=== PATIENT | male | born 1960 | race Caucasian/White ===

== ENCOUNTER 2016-12-19 14:59 | Outpatient (CLI) ==
--- NOTE | 2016-12-19 15:45 | DI ---
EXAM: Radiographs, right rib HISTORY: Right-sided chest pain. COMPARISON: Chest radiograph 05/16/2016. TECHNIQUE: Five views. FINDINGS/IMPRESSION: No right rib fracture identified. Right lung is clear without pleural effusion or pneumothorax.
== END 2016-12-19 15:00 | disposition home or self-care (01) ==
LOC: RAD 14:59
PROVIDERS: ATTEND Nurse Practitioner Family
DX: R07.81 Pleurodynia (principal)

== ENCOUNTER 2017-07-16 16:50 | Outpatient (CLI) ==
--- NOTE | 2017-07-17 07:59 | CT ---
EXAM: CT Abdomen without contrast. CT Pelvis without contrast. HISTORY: Mid abdominal pain, burning. COMPARISON: None available. TECHNIQUE: Multiple axial images of the abdomen and pelvis were obtained without intravenous contras t. Images were reformatted in the coronal plane. FINDINGS: Please note that evaluation of the abdominal and pelvic structures is limited due to lack of intravenous contrast. Subsegmental atelectasis noted in the lung bases. Degenerative changes present in the spine. The liver, gallbladder, pancreas, spleen, adrenal glands, and kidneys demonstrate normal contour. Po ssible low density posterior left renal cortical lesion on axial image 39 measuring 1.3 cm. No calci fied renal stones or hydronephrosis detected. The bowel is normal in course and caliber without evidence for obstruction or inflammatory process. The appendix is normal. Pericolonic diverticulosis noted. Small fat-containing umbilical hernia not ed. Multiple mesenteric lymph nodes are present, greatest in the upper to mid abdomen with the large st measuring 1.4 cm short axis on axial image 45. No free fluid or free air identified. Urinary larry dder is unremarkable per prostatic calcifications noted. Atherosclerotic calcifications are seen. IMPRESSION: 1. Nonspecific mesenteric lymphadenopathy which could be reactive due to infectious/inflammatory pro cess. Follow-up CT in 3 months recommended as lymphoproliferative process not excluded. 2. Possible left renal cyst. Correlation with ultrasound recommended. 3. Diverticulosis. 4. Small fat-containing umbilical hernia. 5. Atherosclerosis.
== END 2017-07-16 16:51 | disposition home or self-care (01) ==
LOC: RAD 16:50
PROVIDERS: ATTEND Emergency Medicine
DX: R10.84 Generalized abdominal pain (principal)

== ENCOUNTER 2017-07-30 18:25 | Outpatient (CLI) | END 2017-07-30 18:26 | disposition home or self-care (01) | LOC: LAB 18:25 | PROVIDERS: ATTEND Emergency Medicine | DX: K52.9 Noninfective gastroenteritis and colitis, unspecified (principal) | CPT/HCPCS: 87015; 87045; 87899 ==

== ENCOUNTER 2017-11-12 13:40 | Outpatient (CLI) ==
--- NOTE | 2017-11-12 14:55 | CT ---
EXAM: CT of the cervical spine without contrast History: Cervicalgia. Technique: Multiplanar CT images through the cervical spine were obtained without the administration of IV contrast Findings: The visualized upper lungs are free of consolidation. No acute fracture or subluxation of the cervical spine. No prevertebral soft tissue swelling. Prede ntal space is not widened. No prevertebral soft tissue swelling. Mild to moderate multilevel degene rative disc space narrowing with endplate sclerosis and a few prominent anterior osteophytes. C2-3: No significant disc bulge, central canal stenosis or bony neural foraminal narrowing. C3-4: Small disc bulge effacing the anterior thecal sac with mild to moderate central canal stenosis . Severe bilateral bony neural foraminal narrowing secondary to uncovertebral and facet hypertrophy. C4-5: Small disc bulge effacing the anterior thecal sac with mild central canal stenosis. Severe ri ght and moderate to severe left bony neural foraminal narrowing secondary to uncovertebral and facet hypertrophy. C5-6: Small disc bulge effacing the anterior thecal sac with mild central canal stenosis. Severe le ft and moderate to severe right bony neural foraminal narrowing secondary to uncovertebral and facet hypertrophy. C6-7: No significant disc bulge or bony central canal stenosis. Mild to moderate bilateral bony corby ral foraminal narrowing secondary to uncovertebral and facet hypertrophy. Impression: 1. No acute osseous abnormality of the cervical spine. 2. Mild to moderate degenerative disc disease. 3. Level by level analysis as detailed above.
== END 2017-11-12 13:41 | disposition home or self-care (01) ==
LOC: RAD 13:40
PROVIDERS: ATTEND Nurse Practitioner Family
DX: M54.2 Cervicalgia (principal); S13.4XXA Sprain of ligaments of cervical spine, initial encounter

== ENCOUNTER 2019-01-19 23:11 | Emergency (ER) ==
[2019-01-19 23:23] VITALS: BP 159/97; TEMP 98.1; BMI 28.1
[2019-01-19] MEDS ORDERED: SODIUM CHLORIDE 1,000 ML IV STA (23:41)
[2019-01-19] MEDS ORDERED: ZOFRAN 4 MG/2 ML IVP STA (23:41)
[2019-01-19] MEDS ORDERED: PEPCID IVP STA (23:41)
[2019-01-20] MEDS ORDERED: MORPHINE 2 MG/ML SYRINGE IVP STA (00:44)
--- NOTE | 2019-01-20 01:10 | CT ---
EXAM: CT scan sinuses HISTORY: Congestion COMPARISON: None. FINDINGS: Contiguous axial images were obtained through the sinuses without contrast utilizing 3-mm collimation. Sagittal and coronal reconstructions were imaged and reviewed.. Minimal mucoperiosteal thickening seen within the left sphenoid sinus. Remaining sinuses are clear.. The ostiomeatal compl exes are patent.. Orbital structures are unremarkable. IMPRESSION: Minimal chronic change left sphenoid sinus. The remaining sinuses are clear.
--- NOTE | 2019-01-20 01:10 | CT ---
EXAM: CT chest without contrast. HISTORY: Cough. Fever. PROCEDURE: Contiguous axial CT images of the chest without contrast with coronal and sagittal reform ats. FINDINGS: The heart is mildly enlarged. The thoracic aorta is within normal limits in size. There i s minimal bibasilar atelectasis and/or pneumonia. There is a chronic compression fracture in the tho racic spine compared with prior exam of 05/16/2016. Impression: Minimal bibasilar atelectasis and/or pneumonia. Cardiomegaly.
--- NOTE | 2019-01-20 01:16 | CT ---
EXAM: CT of the abdomen and pelvis without contrast. HISTORY: Abdominal pain and nausea. PROCEDURE: Contiguous axial CT images of the abdomen and pelvis without contrast with coronal and sa gittal reformats. FINDINGS: Comparison made with CT of 07/16/2017. The liver, gallbladder, pancreas, spleen, adrenal g lands and right kidney are normal in appearance. There is a fluid density cyst in the left kidney. The abdominal aorta is within normal limits in diameter. The appendix is normal in appearance. Ther e is minimal diverticulosis of the colon with no evidence of diverticulitis. No free fluid or free a ir in the abdomen or pelvis. The bladder is adequately filled and normal in appearance. The seminal vesicles and prostate gland are unremarkable. There are degenerative changes in the spine. There i s a stable bone island in the L4 vertebral body. Impression: Diverticulosis of the colon with no evidence of diverticulitis.
--- NOTE | 2019-01-20 01:26 | ED.PDOC ---
General ED Provider: Dr. DENNIS BLANCHARD-ER Chief Complaint: Nausea/Vomiting Stated Complaint: reg been sick with cough, congestion and nausea Time Seen by Physician: 23:20 Mode of Arrival: Walk-In Information Source: Patient Exam Limitations: No limitations Primary Care Provider: ENMA COLBY-[facility] Nursing and Triage Documentation Reviewed and Agree: Yes Does patient meet sepsis criteria?: No System Inflammatory Response Syndrome: Not Applicable Sepsis Protocol: For patient's 13 years and over: Temp is 96.8 and below OR 101 and greater Pulse >90 BPM Resp >20/minute Acutely Altered Mental Status Are patient's symptoms suggestive of a new infection, such as: -Pneumonia -Skin, Soft Tissue -Endocarditis -UTI -Bone, Joint Infection -Implantable Device -Acute Abdominal Infection -Wound Infection -Meningitis -Blood Stream Catheter Infection -Unknown Respiratory Complaint Exam - Respiratory Complaint/Exam Onset/Duration: 3 days Symptoms Are: Still present Timing: Intermittent Initial Severity: Mild Current Severity: Mild Location: Nose, Chest Character: Reports: Non-productive cough Aggravating: Reports: URI Associated Signs and Symptoms: Reports: URI, Nasal congestion. Denies: Rapid breathing, Dyspnea, Fever, Chills, Chest pain, Pleuritic chest pain, Wheezing, Hemoptysis, Dizziness, Calf pain, Calf swelling, Edema History of Healthcare-Acquired Pneumonia: No Home Oxygen Use: No Recent Stress Test: No Recent Echo/LV Function: No Current Antibiotic Use: Yes Current Asthma Medication Use: No Respiratory Distress: None Dysphagia Present: No Stridor Present: No JVD Present: No Accessory Muscle Use: No Retractions: Not Present Diminished Breath Sounds: No Sinus Tenderness: None Grunting Respirations: No Kussmaul Respirations: No Differential Diagnoses: Pneumonia, Bronchitis, URI Non-Traumatic Chest Pain Syncope: EKG Performed Review of Systems - Review Of Systems Constitutional: Reports: Fever Eyes: Reports: No symptoms Ears, Nose, Mouth, Throat: Reports: Nose discharge Respiratory: Reports: Cough Cardiac: Reports: No symptoms GI: Reports: No symptoms : Reports: No symptoms Musculoskeletal: Reports: No symptoms Skin: Reports: No symptoms Neurological: Reports: No symptoms Endocrine: Reports: No symptoms Hematologic/Lymphatic: Reports: No symptoms All Other Systems: Reviewed and Negative Past Medical History - Past Medical History Previously Healthy: No Endocrine: Reports: Unknown Cardiovascular: Reports: Unknown Respiratory: Reports: Unknown Hematological: Reports: Unknown Gastrointestinal: Reports: Unknown Genitourinary: Reports: Unknown Neuro/Psych: Reports: Unknown Musculoskeletal: Reports: Unknown Cancer: Reports: Unknown - Surgical History General Surgical History: Reports: Unknown - Family History Family History: Reports: Unknown - Social History Smoking Status: Never smoker Hx Substance Use: No Alcohol Screening: None - Immunizations Tetanus Shot up to Date: Yes Physical Exam - Physical Exam Appearance: Well-appearing, No pain distress, Well-nourished Eyes: LUIS, EOMI, Conjunctiva clear ENT: Ears normal, Nose normal, Oropharynx normal Neck: Supple Respiratory: Rhonchi Cardiovascular: RRR, Pulses normal, No rub, No murmur GI/: Soft, Nontender, No masses, Bowel sounds normal, No Organomegaly Musculoskeletal: Normal strength, ROM intact, No edema, No calf tenderness Skin: Warm, Dry, Normal color Neurological: Sensation intact Psychiatric: Affect appropriate, Mood appropriate Interpretation - Radiology Interpretation Radiology Interpretation By: Radiologist Radiology Results: Positive Exam Interpreted: CT Scan - EKG Interpretation Time of EKG #1: 01:26 Rate: Normal Rhythm: Sinus Ectopy: None Hatley: NL ST Segment: Normal Interpretation: nsr Re-Evaluation - Re-Evaluation Time of Re-Evaluation: 01:26 Status: Improved Vital Signs Stable: Yes Pain Level: 0 Appearance: NAD Lungs: Clear Skin: Warm and Dry Neuro: Alert and Oriented X3 CV: RRR Critical Care Note - Critical Care Note Total Time (mins): 0 Course - Course Hematology/Chemistry: 01/19/19 23:45 01/19/19 23:45 Orders, Labs, Meds: Lab Review 01/19/19 01/19/19 01/19/19 23:15 23:45 23:45 WBC 7.78 RBC 5.58 Hgb 14.6 Hct 44.5 MCV 79.7 L MCH 26.2 L MCHC 32.8 RDW Coeff of Jorge Luis 13.2 Plt Count 243 Immature Gran % (Auto) 0.4 Neut % (Auto) 64.3 Lymph % (Auto) 22.6 [place] % (Auto) 10.8 H Eos % (Auto) 1.5 Baso % (Auto) 0.4 Immature Gran # (Auto) 0.0 Neut # (Auto) 5.0 Lymph # (Auto) 1.8 [place] # (Auto) 0.8 Eos # (Auto) 0.1 Baso # (Auto) 0.0 ESR 4 Sodium 139.4 Potassium 3.88 Chloride 105.1 Carbon Dioxide 27.9 Anion Gap 10.28 BUN 14.0 Creatinine 0.93 Estimated GFR (MDRD) 83.00 BUN/Creatinine Ratio 15.05 Glucose 93.4 Calcium 8.81 Total Bilirubin 0.48 AST 37.3 ALT 30.8 Alkaline Phosphatase 66.8 Total Creatine Kinase 42.2 L Troponin I < 0.012 Total Protein 7.12 Albumin 4.20 Globulin 2.92 Albumin/Globulin Ratio 1.43 Amylase 102.1 Lipase 99.2 Urine Color Urine Clarity Urine pH Ur Specific [place] Urine Protein Urine Glucose (UA) Urine Ketones Urine Blood Urine Nitrite Urine Bilirubin Urine Urobilinogen Ur Leukocyte Esterase Influ A Molecular Assay Negative by naat Influ B Molecular Assay Negative by naat 01/20/19 00:50 WBC RBC Hgb Hct MCV MCH MCHC RDW Coeff of Jorge Luis Plt Count Immature Gran % (Auto) Neut % (Auto) Lymph % (Auto) [place] % (Auto) Eos % (Auto) Baso % (Auto) Immature Gran # (Auto) Neut # (Auto) Lymph # (Auto) [place] # (Auto) Eos # (Auto) Baso # (Auto) ESR Sodium Potassium Chloride Carbon Dioxide Anion Gap BUN Creatinine Estimated GFR (MDRD) BUN/Creatinine Ratio Glucose Calcium Total Bilirubin AST ALT Alkaline Phosphatase Total Creatine Kinase Troponin I Total Protein Albumin Globulin Albumin/Globulin Ratio Amylase Lipase Urine Color Light Urine Clarity Clear Urine pH 6.5 Ur Specific [place] <=1.005 Urine Protein Negative Urine Glucose (UA) Negative Urine Ketones Negative Urine Blood Negative Urine Nitrite Negative Urine Bilirubin Negative Urine Urobilinogen 0.2 Ur Leukocyte Esterase Negative Influ A Molecular Assay Influ B Molecular Assay Orders Category Date Time Status EKG-(ED ONLY) Stat CARDIO 01/19/19 23:40 Completed ED IV/MEDIPORT/POWERPORT .ONCE EMERGENCY 01/19/19 23:41 Active AMYLASE Stat LAB 01/19/19 23:45 Completed CBC W/ AUTO DIFF Stat LAB 01/19/19 23:45 Completed COMPREHENSIVE METABOLIC PANEL Stat LAB 01/19/19 23:45 Completed CREATINE KINASE Stat LAB 01/19/19 23:45 Completed ESR Stat LAB 01/19/19 23:45 Completed FLU A/B MOLECULAR Stat LAB 01/19/19 23:15 Completed LIPASE Stat LAB 01/19/19 23:45 Completed MOLECULAR GROUP A STREP Stat LAB 01/19/19 23:15 Completed TROPONIN I Stat LAB 01/19/19 23:45 Completed URINALYSIS C & S IF INDICATED Stat LAB 01/20/19 00:50 Completed 0.9 % Sodium Chloride [Saline Flush] MEDS 01/19/19 23:40 Ordered 1 syr IVF PRN PRN Famotidine Inj [Pepcid] MEDS 01/19/19 23:41 Discontinued 20 mg IVP ONCE STA Morphine Sulfate [Morphine 2 mg/ml Syringe] MEDS 01/20/19 00:44 Discontinued 2 mg IVP ONCE STA Ondansetron HCl/Pf [Zofran 4 mg/2 ml] MEDS 01/19/19 23:41 Discontinued 4 mg IVP ONCE STA Sodium Chloride 0.9% [Sodium Chloride] 1,000 ml MEDS 01/19/19 23:[address] ABDOMEN/PELVIS WO CONTRAST Stat RADS 01/19/19 23:[address] CHEST W/O CONTRAST Stat RADS 01/19/19 23:[address] SINUSES W/O CONTRAST Stat RADS 01/19/19 23:42 Completed Medications Generic Name Dose Route Start Last Admin Trade Name Freq PRN Reason Stop Dose Admin Sodium Chloride 1 syr 01/19/19 23:40 01/19/19 23:55 Saline Flush IVF 1 syr PRN PRN Administration To flush IV Discontinued Medications Generic Name Dose Route Start Last Admin Trade Name Freq PRN Reason Stop Dose Admin Famotidine 20 mg 01/19/19 23:41 01/19/19 23:54 Pepcid IVP 01/19/19 23:42 20 mg ONCE STA Administration Sodium Chloride 1,000 mls @ 1,000 mls/hr 01/19/19 23:41 01/19/19 23:55 Sodium Chloride IV 01/20/19 00:40 1,000 mls/hr BOLUS STA Administration Morphine Sulfate 2 mg 01/20/19 00:44 01/20/19 00:48 Morphine 2 Mg/Ml Syringe IVP 01/20/19 00:45 2 mg ONCE STA Administration Ondansetron HCl 4 mg 01/19/19 23:41 01/19/19 23:55 Zofran 4 Mg/2 Ml IVP 01/19/19 23:42 4 mg ONCE STA Administration Vital Signs: Temp Pulse Resp BP Pulse Ox 01/19/19 23:16 98.1 F 79 16 159/97 H 96 Departure - Departure Time of Disposition: : Disposition: HOME SELF-CARE Discharge Problem: Pneumonia Qualifiers: Pneumonia type: due to unspecified organism Laterality: bilateral Lung location : unspecified part of lung Qualified Code(s): J18.9 - Pneumonia, unspecified organism Instructions: Pneumonitis (ED) Condition: Good Pt referred to PMD for follow-up: Yes IPMP verified?: No Additional Instructions: stay on the augmentin--stop mobic---f/u with clinic this week Allergies/Adverse Reactions: Allergies No Known Allergies Allergy (Unverified 01/19/19 23:20) Home Medications: Ambulatory Orders Hydrocodone/Acetaminophen [Hydrocodone-Acetamin 10-325 Mg] 1 each PO Q4HR PRN Amoxicillin/Potassium Clav [Augmentin 875-125 Tablet] 1 each PO BID 01/19/19 Meloxicam [Mobic] 15 mg PO DAILY 01/19/19 Disposition Discussed With: Patient
== END 2019-01-20 01:33 | disposition home or self-care (01) ==
LOC: ED 23:11
DX: J18.9 Pneumonia, unspecified organism (principal)
CPT/HCPCS: 36415; 80053; 81001; 82150; 82550; 83690; 84484; 85025; 85651; 87502; 87651; 93005; 93010; 96361; 96374; 96375; 99283

== ENCOUNTER 2019-01-30 10:54 | Outpatient (CLI) | END 2019-01-30 10:55 | disposition home or self-care (01) | LOC: RHC-LAB 10:54 → FCC-LAB 10:55 | PROVIDERS: ATTEND Nurse Practitioner Family | DX: R19.7 Diarrhea, unspecified (principal) | CPT/HCPCS: 87493 ==

== ENCOUNTER 2019-02-11 12:47 | Outpatient (CLI) ==
--- NOTE | 2019-02-12 10:00 | DI ---
EXAM: Lumbar spine five views HISTORY: Low back pain FINDINGS: General bone density appears grossly normal. No scoliosis. Mild sacroiliac joint arthrop athy. Oblique views reveal intact pars interarticularis structures. Lateral projections reveal norm al vertebral body height and alignment with no spondylolisthesis. Moderate facet arthropathy and deg enerative disc disease at the lumbosacral junction. No acute fracture. IMPRESSION: 1. Moderate degenerative disc and facet disease at the lumbosacral junction.
== END 2019-02-11 12:48 | disposition home or self-care (01) ==
LOC: RAD 12:47
PROVIDERS: ATTEND Nurse Practitioner Family
DX: M54.5 Low back pain (principal)